=== PATIENT | female | born 1950 | race Caucasian/White ===

== ENCOUNTER 2021-11-05 02:35 | Observation (INO) | payer MEDICARE, SELFPAY ==
[2021-11-05] VITALS (10 sets, daily range): BP systolic 126–154; BP diastolic 57–82; PULSE 81–102; RESP 11–31; TEMP 36.3–37.1; O2SAT 93–98; BMI 35.4
--- NOTE | ~2021-11-05 | XR_ITS ---
EXAMINATION: XR CHEST CLINICAL INFORMATION: Dizziness, nausea COMPARISON: None TECHNIQUE: Frontal view of the chest was obtained. FINDINGS: Lung volumes are symmetric. No focal consolidation is seen. Linear atelectasis is present in the mid to lower left lung. No evidence of pneumothorax, pleural effusion, or pulmonary edema. Cardiac size is within normal limits. Calcification is present at the aortic arch. Degenerative changes are noted in the spine. XR/XR chest 1V IMPRESSION: No acute cardiopulmonary findings.
--- NOTE | ~2021-11-05 | CT_ITS ---
EXAMINATION: CT ANGIOGRAM NECK AND HEAD CLINICAL INFORMATION: Posterior circulation CVA COMPARISON: Head CT from earlier today TECHNIQUE: Initial noncontrast head CT was performed. Test bolus sequences followed by intravenous administration 70 mL of Omnipaque 350. Helical imaging was performed in the axial plane from the thoracic inlet to the skull vertex. Delayed postcontrast imaging of the head was also performed. The data was processed at the ct scan special procedures technologist's workstation for generation of MIP sequences. Angled MIPs and volume rendered reformatted images were also generated at an offline 3D workstation. Stenoses are assessed in accordance with NASCET criteria unless otherwise indicated. DOSE LOWERING TECHNIQUES: This CT examination was performed using dose optimization techniques as appropriate, variously including the following: - Automated exposure control - Adjustment of mA and/or kV according to patient size (this includes techniques or standardized protocols for targeted exams were dose is matched to indication/reason for exam; i.e. extremities or head) - Use of iterative reconstruction technique DLP: 1632 mGy-cm FINDINGS: Neck CTA: There is a classic 3 vessel branching pattern of the aortic arch. Normal appearance of the visualized aortic arch and proximal branches. No evidence of stenosis at the branch origins. Both vertebral arteries are widely patent throughout their extracranial cervical course. There is trace calcification at the left common carotid artery bifurcation. Otherwise normal appearance of the common and internal carotid arteries without focal stenosis. Brain CTA: The bilateral intradural vertebral arteries are patent, though are relatively diminutive. There are origins of the bilateral posterior cerebral arteries. Normal appearance of the distal segments of the posterior cerebral arteries bilaterally. Normal appearance of the intradural internal carotid arteries without focal stenosis. Normal appearance of the anterior cerebral and middle cerebral arteries without focal occlusion or stenosis. Normal anterior communicating artery. Normal arborization of the middle cerebral arteries. CT Head: No intracranial mass, hemorrhage, extra-axial collection, or midline shift. The lima-white matter differentiation is preserved. There is mild periventricular white matter hypoattenuation consistent with chronic small vessel ischemic disease. No pathologic intra-axial enhancement or regional oligemia. No hydrocephalus. The mastoid air cells and paranasal sinuses remain well aerated. CT Neck: The thyroid gland and remaining cervical soft tissues are normal in appearance. There is disc space narrowing and endplate osteophyte formation in the lower cervical spine. Upper Chest: There is a partially visualized 1.3 cm nodule in the right upper lobe, not fully characterized on this exam. CT/CT angio head neck IMPRESSION: 1. No hemodynamically significant stenosis in the major arteries of the neck. No large vessel occlusion or significant stenosis in the intracranial circulation. 2. Partially visualized right upper lobe lung nodule measuring at least 1.3 cm. Further workup with chest CT is recommended, as appearance on this exam is concerning for neoplasm. This was discussed with MD Nan on 11/05/2021 6:54 AM.
--- NOTE | ~2021-11-05 | CT_ITS ---
EXAMINATION: CT HEAD WITHOUT CONTRAST CLINICAL INFORMATION: Severe dizziness COMPARISON: None TECHNIQUE: Contiguous axial imaging was performed from the skull base to vertex without intravenous administration of contrast. This CT examination was performed using dose optimization techniques as appropriate, variously including the following: *Automated exposure control *Adjustment of mA and/or kV according to patient size (this includes techniques or standardized protocols for targeted exams where dose is matched to indication/reason for exam; i.e. extremities or head) *Use of iterative reconstruction technique DLP: 822 mGy-cm FINDINGS: There is no evidence of acute intracranial hemorrhage or territorial infarction. No abnormal mass effect or midline shift is seen. Cole to white matter differentiation is well preserved. No extra-axial fluid collections are identified. The ventricles are normal in size. There is no abnormal attenuation within the brain parenchyma. The osseous structures and soft tissues are normal. The mastoid air cells and visualized portions of the paranasal sinuses are well aerated. CT/CT head/brain wo con IMPRESSION: No acute intracranial pathology.
--- NOTE | ~2021-11-05 | MR_ITS ---
EXAMINATION: MR BRAIN WITHOUT CONTRAST CLINICAL INFORMATION: Severe vertigo. Rule out cerebellar stroke. COMPARISON: Head CTA 11/05/2021. TECHNIQUE: Multiplanar, multisequence imaging of the brain was performed without intravenous contrast. FINDINGS: There is no acute infarction, hemorrhage, mass, or extra-axial fluid collection. There is a punctate focus of acute infarction within the left parietal lobe. Mild patchy foci of T2/FLAIR hyperintensity are seen within the cerebral white matter. A small chronic lacunar infarct is seen within the javan. The ventricles are normal in size and configuration without evidence of hydrocephalus. The major arterial flow voids are preserved at the skull base. The extracranial structures are unremarkable. MR/MR head/brain wo con IMPRESSION: No acute intracranial abnormality. Specifically no evidence of acute infarction within the posterior fossa. 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 Chronic lacunar infarct seen within the central javan.
--- NOTE | 2021-11-05 03:00 | ECG_ITS ---
Test Reason : dizziness Blood Pressure : / mmHG Vent. Rate : 086 BPM Atrial Rate : 086 BPM P-R Int : 198 ms QRS Dur : 082 ms QT Int : 406 ms P-R-T Axes : 050 021 040 degrees QTc Int : 485 ms Normal sinus rhythm Normal ECG No previous ECGs available Referred By: Generic ED Physician Electronically Signed By:FAB SCHNEIDER MD
--- NOTE | 2021-11-05 03:11 | ED.DIZZY ---
HPI - Dizziness General Chief Complaint: Dizziness Stated Complaint: DIZZINESS, VOMITING, NAUSEA Time Seen by Provider: 11/05/21 03:10 Source: patient Mode of arrival: ambulatory Limitations: no limitations History of Present Illness HPI Narrative: Patient came by ambulance for increased dizziness nausea with vomiting she woke up in the morning at 130 am to use the bathroom started feeling dizzy while walking sat on the toilet for few minutes felt like the room was spinning nauseous vomited 1 time while in the ambulance no fever no chills no headache patient does have a history of vertigo in the past but not that strong dizziness gets worse turning her head to the left side Related Data Allergies Allergy/AdvReac Type Severity Reaction Status Date / Time No Known Allergies Allergy Verified 11/05/21 03:46 Review of Systems Review of Systems: Yes all other systems are reviewed and are negative [facility] Social History Social History Advance Directives: No Physical Exam Vital Signs: Vital Signs: Last Vital Signs Temp 97.3 F 11/05/21 03:05 Pulse 93 11/05/21 06:32 Resp 20 11/05/21 06:32 BP 146/74 H 11/05/21 06:32 Pulse Ox 95 11/05/21 06:32 O2 Del Method 11/05/21 06:32 BMI result Body Mass Index 35.4 Appearance: Alert. Oriented X3. No acute distress. Eyes: PERRLA, No Nystagmus ENT: Pharynx normal. Oral Mucosa moist Neck: Normal inspection. Neck supple. CVS: Normal heart rate and rhythm. Pulses normal. Respiratory: No respiratory distress. Equal air entry bilateral, no wheezing/rales/rhonchi Abdomen: Soft and nontender. Bowel sounds are present, no mass palpable, no CVA tenderness Skin: Skin warm and dry. Normal skin color. Normal skin turgor. Extremities: No lower extremity edema. No calf tenderness Neuro: Oriented X 3. No motor deficit. No sensory deficit.No cerebellar signs , cranial nerves II-XII intact MDM - Dizziness MDM Narrative Medical decision making narrative: 05:00 Patient clinically with benign positional vertigo no signs of cerebellar involvement no dysarthria no focal deficit. Head CT negative for anything acute labs are stable patient feeling much better after meclizine will make her ambulate and anticipated discharge on meclizine 0530 patient complaining of headache still feeling dizzy will get CTA head neck and plan for MRI to rule out posterior circulation CVA 06:30 patient signed out to Dr. [place] pending CTA result and MRI and disposition Differential Diagnosis Differential diagnosis: Likely benign paroxysmal positional vertigo, orthostatic hypotension, vertebral basilar insufficiency, cerebrovascular accident, acute vestibular neuronitis and transient cerebral ischemia Lab Data Attestation: I reviewed the patient's lab results. Result diagrams: 11/05/21 03:40 11/05/21 03:40 Labs: Lab Results 11/05/21 11/05/21 11/05/21 Range/Units 03:40 03:40 03:40 WBC 8.3 (4.8-10.8) X10*3/uL RBC 4.62 (4.20-5.50) X10*6/uL Hgb 13.5 (12.0-16.0) g/dl Hct 39.9 (37.0-47.0) % MCV 86.4 (80.0-98.0) fL MCH 29.2 (27.0-33.0) pg MCHC 33.8 (31.0-35.0) g/dl RDW 13.5 (11.0-16.0) % Plt Count 191 (160-400) X10*3/uL MPV 9.5 (9.4-12.3) fL Immature Gran % (Auto) 0.2 (0.0-0.4) % Neut % (Auto) 70.0 (45-73) % Lymph % (Auto) 21.6 (20-40) % Pickett % (Auto) 6.6 (2-11) % Eos % (Auto) 1.2 (0-4) % Baso % (Auto) 0.4 (0-2) % Lymph # (Auto) 1.8 (1.2-4.9) X10*3/uL Pickett # (Auto) 0.6 (0.1-1.2) X10*3/uL Eos # (Auto) 0.1 (0.0-0.4) X10*3/uL Baso # (Auto) 0.0 (0.0-0.2) X10*3/uL Abs Immat Gran (auto) 0.02 (0.00-0.03) X10*3/uL Absolute Neuts (auto) 5.8 (2.0-8.3) x10*3/uL Absolute Nucleated RBC 0.000 (0.0-0.012) X10*3/uL Nucleated RBC % (auto) 0.0 (0.0-0.2) /100WBC Sodium 139 (135-145) mmol/L Potassium 3.6 (3.3-5.1) mmol/L Chloride 103 (96-108) mmol/L Carbon Dioxide 27 (22-29) mmol/L Anion Gap 13 (12-20) BUN 25 H (9-16) mg/dL Creatinine 0.69 (0.5-1.4) mg/dL Estim Creat Clear Calc 81.1 Estimated GFR > 60 Random Glucose 163 H (60-115) mg/dL Calcium 8.8 (8.4-10.2) mg/dL Troponin I High Sens < 3.5 (<3.5-17.0) ng/L COVID-19 (SARANYA) (Negative) COVID-19 Clin Com 11/05/21 Range/Units 04:57 WBC (4.8-10.8) X10*3/uL RBC (4.20-5.50) X10*6/uL Hgb (12.0-16.0) g/dl Hct (37.0-47.0) % MCV (80.0-98.0) fL MCH (27.0-33.0) pg MCHC (31.0-35.0) g/dl RDW (11.0-16.0) % Plt Count (160-400) X10*3/uL MPV (9.4-12.3) fL Immature Gran % (Auto) (0.0-0.4) % Neut % (Auto) (45-73) % Lymph % (Auto) (20-40) % Pickett % (Auto) (2-11) % Eos % (Auto) (0-4) % Baso % (Auto) (0-2) % Lymph # (Auto) (1.2-4.9) X10*3/uL Pickett # (Auto) (0.1-1.2) X10*3/uL Eos # (Auto) (0.0-0.4) X10*3/uL Baso # (Auto) (0.0-0.2) X10*3/uL Abs Immat Gran (auto) (0.00-0.03) X10*3/uL Absolute Neuts (auto) (2.0-8.3) x10*3/uL Absolute Nucleated RBC (0.0-0.012) X10*3/uL Nucleated RBC % (auto) (0.0-0.2) /100WBC Sodium (135-145) mmol/L Potassium (3.3-5.1) mmol/L Chloride (96-108) mmol/L Carbon Dioxide (22-29) mmol/L Anion Gap (12-20) BUN (9-16) mg/dL Creatinine (0.5-1.4) mg/dL Estim Creat Clear Calc Estimated GFR Random Glucose (60-115) mg/dL Calcium (8.4-10.2) mg/dL Troponin I High Sens (<3.5-17.0) ng/L COVID-19 (SARANYA) Negative (Negative) COVID-19 Clin Com See Note ECG Data Attestation: I personally reviewed and interpreted this ECG as follows: Interpretation: Normal sinus rhythm heart rate 86 beats per minute normal interval normal axis no acute ST wave changes impression normal EKG Discharge Plan Discharge Clinical Impression: Benign paroxysmal positional vertigo Patient Disposition: Still a Patient
[2021-11-05] MEDS: ondansetron HCL 4 MG/2 ML VIAL IVPUSH ×2 (03:42→05:51)
[2021-11-05] MEDS: Meclizine HCl 25 MG TABLET PO ×3 (03:42→19:51)
[2021-11-05 03:44] LABS: Basophils Percent Auto 0.4 % (0-2); Eosinophils Absolute Auto 0.1 X10*3/uL (0.0-0.4); Eosinophils Percent Auto 1.2 % (0-4); Hematocrit 39.9 % (37.0-47.0); Hemoglobin 13.5 g/dl (12.0-16.0); Imm Gran Abs Auto 0.02 X10*3/uL (0.00-0.03); Imm Gran Pct Auto 0.2 % (0.0-0.4); Lymphocytes Absolute Auto 1.8 X10*3/uL (1.2-4.9); Lymphocytes Percent Auto 21.6 % (20-40); MANUAL DIFF FLAG NO; Mean Corpuscular HGB Conc 33.8 g/dl (31.0-35.0); Mean Corpuscular Hemoglobin 29.2 pg (27.0-33.0); Mean Corpuscular Volume 86.4 fL (80.0-98.0); Mean Platelet Volume 9.5 fL (9.4-12.3); Monocytes Absolute Auto 0.6 X10*3/uL (0.1-1.2); Monocytes Percent Auto 6.6 % (2-11); Neutrophils Absolute Auto 5.8 x10*3/uL (2.0-8.3); Platelet Count 191 X10*3/uL (160-400); Red Blood Count 4.62 X10*6/uL (4.20-5.50); Red Cell Distribution Width 13.5 % (11.0-16.0); White Blood Count 8.3 X10*3/uL (4.8-10.8)
[2021-11-05 04:00] LABS: Anion Gap 13 (12-20); Blood Urea Nitrogen 25 mg/dL (9-16); Calcium 8.8 mg/dL (8.4-10.2); Carbon Dioxide 27 mmol/L (22-29); Chloride 103 mmol/L (96-108); Creatinine Clr Calc Pharmacy 81.1; Estimated Glomerular Filt Rate > 60; Glucose Random 163 mg/dL (60-115); Potassium 3.6 mmol/L (3.3-5.1); Sodium 139 mmol/L (135-145)
[2021-11-05 04:05] LABS: Troponin-I High Sensitivity < 3.5 ng/L (<3.5-17.0)
[2021-11-05] MEDS: 0.9 % Sodium Chloride 1,000 ML 999 ML IV (04:55)
[2021-11-05 05:18] LABS: COVID-19 Test Negative (Negative)
--- NOTE | 2021-11-05 05:43 | PC.NURSE ---
Pt stated that she was feeling less dizzy while while laying in bed, but did report a bad headache with photosensitivity. Pt then asked if she could get up to use the bathroom. When pt was sat up in bed she immediately started to experience the return of dizziness and nausea. Provider made aware. Plan for CTA.
[2021-11-05] MEDS: Morphine Sulfate 2 MG/ML CARTRIDGE IVPUSH (05:51)
[2021-11-05] MEDS: iohexoL 350 MG/ML 100 ML INFUS..BTL 70 ML IV (06:36)
--- NOTE | 2021-11-05 06:36 | PC.NURSE ---
Med rec completed with pt at the bed side.
--- NOTE | 2021-11-05 07:40 | PC.NURSE ---
mri form completed
[2021-11-05] MEDS: diazePAM 10 MG/2 ML CARTRIDGE 2.5 MG IVPUSH (08:19)
--- NOTE | 2021-11-05 09:06 | PC.NURSE ---
PT IS OFF AT MRI
--- NOTE | 2021-11-05 10:11 | PHA.MEDREC ---
Pharmacy Consult ? Medication Reconciliation Pharmacy has completed the medication reconciliation. rn comepleted simone puente rph checked.
--- NOTE | 2021-11-05 10:28 | PC.NURSE ---
pt aware of plan of care for admission. family now at bedside. denied having any questions.
--- NOTE | 2021-11-05 14:17 | PM.IMHP ---
History of Present Illness Date of Service: 11/05/21 Attending physician on admission: Srinivasan Hill Chief Complaint: dizziness This is a 71-year-old female presented to the emergency department with dizziness. Around 130 this morning the patient got up to go to the bathroom and noticed that she felt off balance. She was able to make it back to bed any movement made her dizziness worse. This was associated with nausea, she also had an episode of vomiting EN route to the hospital. Since arrival in emergency department she has had persistent dizziness with any movement. If she remains still the dizziness improves. She describes the dizziness as the room spinning. She denies any ear fullness, ear pain or hearing loss. She was diagnosed with COVID-19 4-6 weeks ago but denies any other viral illnesses. She has no previous episodes of dizziness similar to this in the past. She does state that for the past 1 week she may have been feeling a little off balance intermittently although did not think anything of it at the time. She denies any weakness in her arms or legs, denies difficulty swallowing, denies difficulties with speech. In the emergency department she underwent CT scan of the brain, CTA of the head and neck which were unremarkable. She also underwent MRI of the brain which showed chronic lacunar infarct in the javan but no acute infarct. Due to persistent dizziness the decision was made to keep her overnight for observation. An incidental finding was made of a partially visualized right upper lobe lung nodule. She reports history of ?spot? in her lung present many years ago but is unsure of the location and has not had any follow-up for it in the past 5+ years. COVID-19 vaccination status-vaccinated x4 with Moderna Review of Systems Review of Systems: Yes all other systems are reviewed and are negative Constitutional: Constitutional: Denies chills, Denies fever(s) and Denies headache(s) ENT: Reports dizziness, Denies headache(s) and Denies tinnitus Cardiovascular: Cardiovascular: Denies palpitations Respiratory: Respiratory: Denies cough Gastrointestinal: Gastrointestinal: Denies abdominal pain, Denies diarrhea, Reports nausea and Reports vomiting Neurologic: Reports dizziness and Denies headache(s) Endocrine: Endocrine: Denies palpitations [facility] Medical History (Updated 11/05/21 @ 14:26 by KACIE Shaffer) HLD (hyperlipidemia) HTN (hypertension) Osteoarthritis Functional capacity: independent ambulation Family History Father Prostate cancer Pertinent family history: no history of stroke Surgical History (Updated 11/05/21 @ 14:26 by KACIE Shaffer) History of cholecystectomy Social History (Updated 11/05/21 @ 14:26 by KACIE Shaffer) Household Members: Spouse Alcohol intake: current Alcohol intake frequency: holidays/special occasions only Patient Tobacco Use Status: Never used Tobacco Use of substances other than those prescribed or required for medical reasons: No Advance Directives: No Meds Allergies Allergy/AdvReac Type Severity Reaction Status Date / Time No Known Allergies Allergy Verified 11/05/21 03:46 Active Medications: Current Medications Acetaminophen (Acetaminophen 325 Mg Tablet) 650 mg PO Q6H PRN PRN Reason: Pain, Mild (Pain Scale 1-3) Atorvastatin Calcium (Atorvastatin Calcium 10 Mg Tablet) 10 mg PO DAILY [facility] Enoxaparin Sodium (Enoxaparin Sodium 40 Mg/0.4 Ml Syringe) 40 mg SUBCUT Q24H VALERIE Hydrochlorothiazide (Hydrochlorothiazide 25 Mg Tablet) 25 mg PO DAILY VALERIE; Protocol Meclizine HCl (Meclizine Hcl 25 Mg Tablet) 25 mg PO Q6H PRN PRN Reason: dizziness Non-Formulary Medication (Fluticasone Propionate [Flovent Hfa]) 1 puff PO BID [facility] Ondansetron HCl (Ondansetron Hcl 4 Mg/2 Ml Vial) 4 mg IVPUSH Q8H PRN PRN Reason: Nausea and Vomiting Pharmacy Consult (Consult Rx Perform Med Rec) 1 each MISCELLANE ONCE PRN PRN Reason: Consult order Sodium Chloride (0.9 % Sodium Chloride Flush 3 Ml Syringe) 3 ml IVFLUSH QSHIFT [facility] Home Medications Medication Instructions Recorded Confirmed Last Taken Type atorvastatin 10 mg tablet 10 mg PO DAILY 11/05/21 11/05/21 Unknown History fluticasone propionate 110 1 puff PO BID 11/05/21 11/05/21 Unknown History mcg/actuation HFA aerosol inhaler (Flovent HFA) hydrochlorothiazide 25 mg tablet 25 mg PO DAILY 11/05/21 11/05/21 Unknown History meloxicam 15 mg tablet 15 mg PO DAILY 11/05/21 11/05/21 Unknown History Physical Exam Vital Signs and Narrative: Vital Signs: Last Vital Signs Temp 98.4 F 11/05/21 12:57 Pulse 84 11/05/21 12:57 Resp 17 11/05/21 12:57 BP 140/65 H 11/05/21 12:57 Pulse Ox 94 11/05/21 12:57 O2 Del Method 11/05/21 12:57 BMI result Body Mass Index 35.4 Const: General: cooperative, alert and awake Nutritional Appearance: overweight Orientation/consciousness: patient oriented x3 Eyes: Pupils: Equal, round and reactive pupils present Resp: Effort & Inspection: normal respiratory effort, able to speak in complete sentences, not tachypneic and no use of accessory muscles Cardio: Rate: regular rate Heart sounds: S1 normal heart sound present and S2 normal heart sound present GI: Inspection: No distended Palpation (GI): Soft to palpation and nontender Neuro: General: patient oriented x3 and Unable to assess gait Cranial nerves: Yes Equal, round and reactive pupils present, Yes Bilaterally intact EOM present, Yes Nystagmus not present and Yes Midline tongue present Gait exam (Neuro): Unable to assess gait Motor exam (neuro): 5/5 motor strength present throughout, no tremor noted and no pronator drift noted Results Labs CBC and Chem 7: 11/05/21 03:40 11/05/21 03:40 Labs: Laboratory Results - last 24 hr 11/05/21 11/05/21 11/05/21 03:40 03:40 03:40 MCV 86.4 MCH 29.2 MCHC 33.8 RDW 13.5 Plt Count 191 MPV 9.5 Immature Gran % (Auto) 0.2 Neut % (Auto) 70.0 Lymph % (Auto) 21.6 [place] % (Auto) 6.6 Eos % (Auto) 1.2 Baso % (Auto) 0.4 Lymph # (Auto) 1.8 [place] # (Auto) 0.6 Eos # (Auto) 0.1 Baso # (Auto) 0.0 Abs Immat Gran (auto) 0.02 Absolute Neuts (auto) 5.8 Absolute Nucleated RBC 0.000 Nucleated RBC % (auto) 0.0 Anion Gap 13 Estim Creat Clear Calc 81.1 Estimated GFR > 60 Random Glucose 163 H Calcium 8.8 Troponin I High Sens < 3.5 COVID-19 (SARANYA) COVID-19 Clin Com 11/05/21 04:57 MCV MCH MCHC RDW Plt Count MPV Immature Gran % (Auto) Neut % (Auto) Lymph % (Auto) [place] % (Auto) Eos % (Auto) Baso % (Auto) Lymph # (Auto) [place] # (Auto) Eos # (Auto) Baso # (Auto) Abs Immat Gran (auto) Absolute Neuts (auto) Absolute Nucleated RBC Nucleated RBC % (auto) Anion Gap Estim Creat Clear Calc Estimated GFR Random Glucose Calcium Troponin I High Sens COVID-19 (SARANYA) Negative COVID-19 Clin Com See Note Imaging Radiologist's Impressions: Impressions Chest X-Ray 11/05/21 03:36 IMPRESSION: No acute cardiopulmonary findings. Head CT 11/05/21 04:30 IMPRESSION: No acute intracranial pathology. Head/Neck CTA 11/05/21 06:30 IMPRESSION: 1. No hemodynamically significant stenosis in the major arteries of the neck. No large vessel occlusion or significant stenosis in the intracranial circulation. 2. Partially visualized right upper lobe lung nodule measuring at least 1.3 cm. Further workup with chest CT is recommended, as appearance on this exam is concerning for neoplasm. This was discussed with MD Nan on 11/05/2021 6:54 AM. Brain MRI 11/05/21 08:59 IMPRESSION: No acute intracranial abnormality. Specifically no evidence of acute infarction within the posterior fossa. 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 Chronic lacunar infarct seen within the central javan. Assessment and Plan (1) Dizziness: Status: Acute (2) Lung nodule: Status: Acute Plan This is a 71-year-old female with history of hypertension, hyperlipidemia who presents to the emergency department dizziness Dizziness Likely secondary to BPPV MRI negative for acute infarct, showing chronic lacunar infarct of the javan -symptomatic support including meclizine, Zofran -if no improvement would obtain Neurology consult Lung nodule Incidental finding of right upper lobe lung nodule on CTA CXR negative recommend outpatient chest CT for further eval Hypertension Continue hydrochlorothiazide Hyperlipidemia Continue statin DVT ppx - lovenox code status - full code HCP- Attending-Dr. Sergio Eaton Stroke Does the patient have a stroke diagnosis?: No VTE Prior VTE?: No VTE Risk Level:: Medical - moderate - high VTE Device Contraindication: N/A - Device Ordered VTE Drug Contraindication: N/A - Med Ordered
[2021-11-05] MEDS: Enoxaparin Sodium 40 MG/0.4 ML SYRINGE SUBCUT (15:51)
--- NOTE | 2021-11-05 16:16 | PM.NEUROCN ---
History of Present Illness Data of Consult Service Date: 11/05/21 Primary Care Provider: Unknown Physician HPI Reason for consult: Dizziness 71 years old woman with underlying history of hypertension who came to hospital with dizziness. Dizziness was severe sense of motion associated with nausea. Every time she would move she was dizzy. There was no associated ear pain ringing discomfort or hearing problem. She denied having any cold or flu-like illness or taken any new chemical or drug. There was no associated visual symptom or numbness or paralysis or speech or language difficulty. Review of Systems Review of Systems: As per HPI [facility] Past Medical History Medical History (Updated 11/05/21 @ 16:19 by Yanelis Cazares MD) HLD (hyperlipidemia) HTN (hypertension) Osteoarthritis Functional capacity: independent ambulation Family History Family History Father Prostate cancer Surgical History Surgical History (Updated 11/05/21 @ 14:26 by KACIE Shaffer) History of cholecystectomy Social History Social History (Updated 11/05/21 @ 14:26 by KACIE Shaffer) Household Members: Spouse Alcohol intake: current Alcohol intake frequency: holidays/special occasions only Patient Tobacco Use Status: Never used Tobacco Use of substances other than those prescribed or required for medical reasons: No Advance Directives: No Meds Allergies Allergy/AdvReac Type Severity Reaction Status Date / Time No Known Allergies Allergy Verified 11/05/21 03:46 Active Medications: Current Medications Acetaminophen (Acetaminophen 325 Mg Tablet) 650 mg PO Q6H PRN PRN Reason: Pain, Mild (Pain Scale 1-3) Atorvastatin Calcium (Atorvastatin Calcium 10 Mg Tablet) 10 mg PO BEDTIME [facility] Enoxaparin Sodium (Enoxaparin Sodium 40 Mg/0.4 Ml Syringe) 40 mg SUBCUT Q24H [facility] Last Admin: 11/05/21 15:51 Dose: 40 mg Fluticasone Propionate (Fluticasone Propionate 100 Mcg Blst.W.Dev) 1 puff INHALE RBID VALERIE Hydrochlorothiazide (Hydrochlorothiazide 25 Mg Tablet) 25 mg PO DAILY VALERIE; Protocol Meclizine HCl (Meclizine Hcl 25 Mg Tablet) 25 mg PO Q6H [facility] Last Admin: 11/05/21 15:52 Dose: 25 mg Ondansetron HCl (Ondansetron Hcl 4 Mg/2 Ml Vial) 4 mg IVPUSH Q8H PRN PRN Reason: Nausea and Vomiting Pharmacy Consult (Consult Rx Perform Med Rec) 1 each MISCELLANE ONCE PRN PRN Reason: Consult order Sodium Chloride (0.9 % Sodium Chloride Flush 3 Ml Syringe) 3 ml IVFLUSH QSHIFT [facility] Home Medications Medication Instructions Recorded Confirmed Last Taken Type atorvastatin 10 mg tablet 10 mg PO DAILY 11/05/21 11/05/21 Unknown History fluticasone propionate 110 1 puff PO BID 11/05/21 11/05/21 Unknown History mcg/actuation HFA aerosol inhaler (Flovent HFA) hydrochlorothiazide 25 mg tablet 25 mg PO DAILY 11/05/21 11/05/21 Unknown History meloxicam 15 mg tablet 15 mg PO DAILY 11/05/21 11/05/21 Unknown History Physical Exam Vital Signs: Vital Signs: Last Vital Signs Temp 98.4 F 11/05/21 12:57 Pulse 84 11/05/21 12:57 Resp 17 11/05/21 12:57 BP 140/65 H 11/05/21 12:57 Pulse Ox 94 11/05/21 12:57 O2 Del Method 11/05/21 12:57 BMI result Body Mass Index 35.4 Neuro: Other: She was alert and awake with normal spontaneity of speech fluency comprehension and affect. Pupils were round and reactive. Face was symmetrical. Visual zamora are full. There was no nystagmus. Udhnpo-cl-cunw testing was okay. There was no pronator drift. Deep tendon reflexes were trace to absent with flexor plantars. Speech was normal. Results Labs CBC & Chem 7: 11/05/21 03:40 11/05/21 03:40 Labs: Short CBC 11/05/21 Range/Units 03:40 WBC 8.3 (4.8-10.8) X10*3/uL Hgb 13.5 (12.0-16.0) g/dl Hct 39.9 (37.0-47.0) % Plt Count 191 (160-400) X10*3/uL [facility] 11/05/21 03:40 Sodium 139 Potassium 3.6 Chloride 103 Carbon Dioxide 27 BUN 25 H Creatinine 0.69 Calcium 8.8 Noncontrast MRI of brain did not reveal any acute lesion. Mild to moderate chronic microvascular ischemic changes were noted including in basis pontis. CTA of brain and neck did not reveal any vascular lesion. Assessment and Plan (1) Vestibular neuritis: Status: Acute 71 years old woman who came with set of symptoms suggestive of vestibular dysfunction though she was not having any acute ear symptoms. There was no evidence of acute stroke though chronic microvascular disease was noted on her brain MRI. Either many years disease or vestibular neuritis were more likely diagnosis but because she never had this kind of episode before, vestibular neuritis was more likely. At the same time microvascular injury to vestibular system can also be a cause. P.r.n. meclizine type of medicines are recommended (2) Cerebral microvascular disease: Status: Acute Hypertension related microvascular disease, which should be treated with anti-platelet agent blood pressure control and statin. Procedures Date of Service Date of Service: 11/05/21
[2021-11-05] MEDS: 0.9 % Sodium Chloride Flush 3 ML SYRINGE IVFLUSH (17:03)
[2021-11-05] MEDS: Acetaminophen 325 MG TABLET 650 MG PO (19:51)
[2021-11-05] MEDS: Atorvastatin Calcium 10 MG TABLET PO (19:51)
--- NOTE | 2021-11-05 22:45 | PC.NURSE ---
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
[2021-11-06] MEDS: Meclizine HCl 25 MG TABLET PO ×2 (02:39→09:32)
[2021-11-06 05:33] VITALS: BP 122/57; PULSE 82; RESP 16; TEMP 36.7; O2SAT 98
--- NOTE | 2021-11-06 05:45 | PC.NURSE ---
PATIENT WAS ASSISTED UNTO BED GASPAR ,VOIDED LARGE AMOUNT .
--- NOTE | 2021-11-06 06:12 | PC.NURSE ---
patient was assisted unto bed side to have a bowel movement ,but did not need to go .
[2021-11-06] MEDS: hydroCHLOROthiazide 25 MG TABLET PO (09:32)
[2021-11-06] MEDS: predniSONE 20 MG TABLET 60 MG PO (09:33)
[2021-11-06] MEDS: 0.9 % Sodium Chloride Flush 3 ML SYRINGE IVFLUSH (09:34)
--- NOTE | 2021-11-06 11:39 | PC.NURSE ---
Pt is A&Ox4, minimal dizziness at this time. No complaints of pain, using walker at this time. Per Laura, pt feels she is improving and possible DCthis afternoon. Call [place] within reach. Will continue to monitor.
--- NOTE | 2021-11-06 11:51 | P.DS_ITS ---
DS: Providers Provider Date of Service: 11/06/21 Date of admission: 11/05/21 14:07 Date of discharge: 11/06/21 Primary care physician: Unknown Physician Consults: 11/05/21 14:13 Consult to Neurology Routine Consulting Provider: [facility] Reason for consultation: dizziness Has provider been notified: No Attending physician on discharge: Srinivasan Hill Discharging clinician: Laura Crenshaw DS: Diagnosis Discharge Diagnosis (1) Vestibular neuritis: Status: Acute (2) Cerebral microvascular disease: Status: Acute DS: Summary Hospital Course Hospital Course: From H&P on day of admission This is a 71-year-old female presented to the emergency department with dizziness.? Around 130 this morning the patient got up to go to the bathroom and noticed that she felt off balance.? She was able to make it back to bed any movement made her dizziness worse.? This was associated with nausea, she also had an episode of vomiting EN route to the hospital.? Since arrival in emergency department she has had persistent dizziness with any movement.? If she remains still the dizziness improves.? She describes the dizziness as the room spinning.? She denies any ear fullness, ear pain or hearing loss.? She was diagnosed with COVID-19 4-6 weeks ago but denies any othe r viral illnesses.? She has no previous episodes of dizziness similar to this in the past.? She does state that for the past 1 week she may have been feeling a little off balance intermittently although did not think anything of it at the time.? She denies any weakness in her arms or legs, denies difficulty swallowing, denies difficulties with speech.? In the emergency department she underwent CT scan of the brain, CTA of the head and neck which were unremarkable.? She also underwent MRI of the brain which showed chronic lacunar infarct in the javan but no acute infarct.? Due to persistent dizziness the decision was made to keep her overnight for observation. An incidental finding was made of a partially visualized right upper lobe lung nodule.? She reports history of ?spot? in her lung present many years ago but is unsure of the location and has not had any follow-up for it in the past 5+ years. COVID-19 vaccination status-vaccinated x4 with Moderna Dizziness. Likely secondary to vestibular neuritis. Patient had no focal neurological deficits. She underwent MRI of the brain which showed a chronic lacunar infarct but no evidence of acute infarction. She was seen in consultati on by Neurology who agreed with probable vestibular neuritis as etiology. She was treated with meclizine and Zofran. Slowly her dizziness improved. She is able to stand and ambulate independently and is eager to return home. Incidental note was made of right upper lobe pulmonary nodule. Recommend outpatient follow-up Time Spent with Patient Time attestation: Total time spent providing and/or coordinating discharge services: Discharge coordination time: Greater than 30 minutes Quality: Safe Use of Opioids Does Pt have an Active Cancer Diagnosis on the Problem List?: No Quality: Stroke Does the patient have a stroke diagnosis?: No Physical Exam Vital Signs: Vital Signs: Last Vital Signs Temp 98.0 F 11/06/21 05:33 Pulse 82 11/06/21 05:33 Resp 16 11/06/21 05:33 BP 122/57 L 11/06/21 05:33 Pulse Ox 98 11/06/21 05:33 O2 Del Method 11/06/21 05:33 BMI result Body Mass Index 35.4 Const: General: cooperative, alert and awake Nutritional Appearance: overweight Orientation/consciousness: patient oriented x3 Eyes: Pupils: Equal, round and reactive pupils present Resp: Effort & Inspection: normal respiratory effort, able to speak in complete sentences, not tachypneic and no use of accessory muscles Cardio: Rate: regular rate Heart sounds: S1 normal heart sound present and S2 normal heart sound present GI: Inspection: No distended Palpation (GI): Soft to palpation and nontender Neuro: General: patient oriented x3 and Unable to assess gait Cranial nerves: Yes Equal, round and reactive pupils present, Yes Bilaterally intact EOM present, Yes Nystagmus not present and Yes Midline tongue present Gait exam (Neuro): Unable to assess gait Motor exam (neuro): 5/5 motor strength present throughout, no tremor noted and no pronator drift noted Discharge Plan Discharge Patient Disposition: Home, Self-Care Discharge Diagnosis: Dizziness Lung nodule Referrals: Physician,Unknown J [Primary Care Provider] - 1 Week Discharge Medications: New meclizine 25 mg tablet 25 mg PO Q6H PRN (Reason: dizziness) Qty: 12 0RF ondansetron 4 mg tablet,disintegrating 4 mg PO Q8H PRN (Reason: nausea and vomiting) Qty: 10 0RF prednisone 10 mg tablet See Taper PO DAILY Qty: 28 0RF Taper: Prednisone 40 mg daily for 4 Days and 0 Hour 30 mg daily for 2 Days and 0 Hour 20 mg daily for 2 Days and 0 Hour 10 mg daily for 2 Days and 0 Hour Continued atorvastatin 10 mg tablet 10 mg PO DAILY meloxicam 15 mg tablet 15 mg PO DAILY fluticasone propionate [Flovent HFA] 110 mcg/actuation HFA aerosol inhaler 1 puff PO BID hydrochlorothiazide 25 mg tablet 25 mg PO DAILY Discharge Orders: Discharge Order (Routine); Ordered 11/06/21 Ordered By: Laura Crenshaw Activity on Discharge: As tolerated Stand Alone Forms: Patient Portal Discharge page Care Plan Goals: See below Health Concerns: Dizziness-likely secondary to vestibular neuritis Stroke ruled out Plan of Treatment: Complete prednisone taper as prescribed Can use meclizine as needed for dizziness Can use Zofran needed for nausea and vomiting Call to schedule follow-up appointment with PCP-will need follow-up for right lung nodule Assessment: See discharge summary Discharge Date/Time: 11/06/21 17:07
== END 2021-11-06 17:07 | disposition home or self-care (01) ==
LOC: HO.ED 09:37 → HO.EDOVER 14:58
PROVIDERS: Internal Medicine; Admitting Provider Physician Assistant Medical; Emergency Provider Emergency Medicine; Visit Provider Physician Assistant Medical
DX: R42 Dizziness and giddiness (principal); R91.1 Solitary pulmonary nodule; I67.89 Other cerebrovascular disease; R26.9 Unspecified abnormalities of gait and mobility; R11.2 Nausea with vomiting, unspecified; I10 Essential (primary) hypertension; E78.5 Hyperlipidemia, unspecified; Z20.822 Contact with and (suspected) exposure to COVID-19; Z79.899 Other long term (current) drug therapy
CPT/HCPCS: 36415; 70450; 70496; 70498; 70551; 71045; 80048; 84484; 85025; 87635; 93005; 96372; 96374; 96375; 96376; 99218; 99285; J1650; J2270; J2405; J3360; Q9967